=== PATIENT | female | born 1975 | race Caucasian/White ===

== ENCOUNTER → 2016-12-01 | Outpatient (CLI) | payer OTHER ==
[~2016-12-01] MED LIST: ESOM20CA PO; FERR325C PO; LISI-167 PO
== END | disposition home or self-care (01) ==
LOC: CFH 08:08
PROVIDERS: ATTEND Family Medicine
DX: K43.9 Ventral hernia without obstruction or gangrene (principal)
CPT/HCPCS: 76705

== ENCOUNTER 2017-01-05 09:51 | Day surgery (SDC) | payer OTHER ==
[2017-01-03 08:10] VITALS: BP 131/74
[2017-01-03 08:49] LABS: ASPARTATE AMINO TRANSFERASE 10 U/L (15-37); BLOOD UREA NITROGEN 13 mg/dL (7-18)
[~2017-01-05] VITALS: Ht 170.2 cm; Wt 111.4 kg
[~2017-01-05 09:51] MED LIST changes: +ATOR10TA9 PO; +BREO INH; +BUPIVACAINE/PF 0.5% ONE; +EPINEPHRINE 1 MG/ML, 1ML ONE; +LOSA50TA6 PO; +MULT-516 PO; +PANT40TA5 PO
[2017-01-05] MEDS ORDERED: LACTATED RINGERS 1,000 ML IV SCH ×2 (10:19→13:51)
[2017-01-05] MEDS ORDERED: LIDOCAINE 1%, 2ML SQ PRN (10:30)
[2017-01-05 11:07] LABS: HCG UR LOT HCG7030192
[2017-01-05 11:26] LABS: HCG UR OBC PASS
[2017-01-05] MEDS ORDERED: MIDAZOLAM 1 MG/ML, 2ML ONE (12:06)
[2017-01-05] MEDS ORDERED: FENTANYL PF 100 MCG/2ML ONE ×3 (12:06→14:10)
[2017-01-05] MEDS ORDERED: ROCURONIUM 10 MG/ML,10ML ONE ×2 (12:07→12:23)
[2017-01-05] MEDS ORDERED: CEFAZOLIN 1,000 MG ONE ×2 (12:07→12:23)
[2017-01-05] MEDS ORDERED: KETOROLAC 30 MG/1 ML ONE (12:07)
[2017-01-05] MEDS ORDERED: ONDANSETRON 2MG/ML, 2ML ONE ×2 (12:07→12:23)
[2017-01-05] MEDS ORDERED: GLYCOPYRROLATE 0.2MG/1ML, 5ML ONE (12:23)
[2017-01-05] MEDS ORDERED: PROPOFOL 10 MG/ML, 20ML ONE (12:23)
[2017-01-05] MEDS ORDERED: NEOSTIGMINE 1 MG/ML, 10ML ONE (12:23)
[2017-01-05] MEDS ORDERED: DEXAMETHASONE 4 MG/ML, 1ML ONE (12:23)
[2017-01-05] MEDS ORDERED: SUCCINYLCHOLINE 20 MG/ML, 10ML ONE (12:23)
[2017-01-05] MEDS ORDERED: OXYcodone 5 MG/5 ML ORAL.SOL UDC PO PRN (13:30)
[2017-01-05] MEDS ORDERED: MEPERIDINE/PF 25MG/0.5ML IVPush PRN (13:30)
[2017-01-05] MEDS ORDERED: hydrALAzine 20 MG/ML, 1ML IV PRN (13:30)
[2017-01-05] MEDS ORDERED: MIDAZOLAM 1 MG/ML, 2ML IV PRN (13:30)
[2017-01-05] MEDS ORDERED: HYDROcodone/APAP 7.5-325MG/15ML UDC PO PRN (13:30)
[2017-01-05] MEDS ORDERED: DIAZEPAM 5 MG/ML, 2ML IVPush PRN (13:30)
[2017-01-05] MEDS ORDERED: ONDANSETRON 2MG/ML, 2ML IVPush PRN ×2 (13:30→14:00)
[2017-01-05] MEDS ORDERED: LABETALOL 5MG/ML, 20ML IV PRN (13:30)
[2017-01-05] MEDS ORDERED: ACETAMINOPHEN 325 MG TABLET PO PRN (13:30)
[2017-01-05] MEDS ORDERED: ALBUTEROL SULFATE 2.5 MG/3 ML NPPB PRN (13:30)
[2017-01-05] MEDS ORDERED: EPHEDRINE 50 MG/ML, 1ML IVPush PRN (13:30)
[2017-01-05] MEDS ORDERED: METOPROLOL 1 MG/ML, 5ML IV PRN (13:30)
[2017-01-05] MEDS ORDERED: PROMETHAZINE 25 MG/ML, 1ML IV PRN (13:30)
[2017-01-05] MEDS ORDERED: HYDROmorphone 1 MG/ML, 1ML ONE ×2 (13:31→14:11)
[2017-01-05] MEDS: FENTANYL PF 100 MCG/2ML IV PRN ×2 (13:52→14:30)
[2017-01-05] MEDS ORDERED: KETOROLAC 30 MG/1 ML IVPush PRN (14:00)
[2017-01-05] MEDS ORDERED: morphine SULFATE 10 MG/ML, 1ML IVPush PRN (14:00)
[2017-01-05] MEDS ORDERED: HYDROcodone/APAP 5/325 TABLET PO PRN (14:00)
[2017-01-05] MEDS ORDERED: HYDROcodone/APAP 7.5-325MG/15ML UDC ONE (14:10)
[2017-01-05] MEDS: HYDROmorphone 1 MG/ML, 1ML IV PRN ×2 (14:19→14:30)
== END 2017-01-05 17:30 | disposition home or self-care (01) ==
LOC: OUT 09:51
PROVIDERS: ATTEND Thoracic Surgery (Cardiothoracic Vascular Surgery)
DX: K43.0 Incisional hernia with obstruction, without gangrene (principal); K21.9 Gastro-esophageal reflux disease without esophagitis; K44.9 Diaphragmatic hernia without obstruction or gangrene; E78.00 Pure hypercholesterolemia, unspecified; I10 Essential (primary) hypertension; Z98.890 Other specified postprocedural states
CPT/HCPCS: 36415; 49653; 80053; 81025; C1781; J0171; J0330; J0690; J1100; J1170; J1885; J2250; J2405; J2704; J2710; J3010; J3490; J7120; S2900

== ENCOUNTER → 2017-08-15 | Outpatient (CLI) | payer OTHER ==
[~2017-08-15] MED LIST changes: -BUPIVACAINE/PF 0.5% ONE; -EPINEPHRINE 1 MG/ML, 1ML ONE
== END | disposition home or self-care (01) ==
LOC: CFH 07:21
PROVIDERS: ATTEND Family Medicine
DX: Z12.31 Encounter for screening mammogram for malignant neoplasm of breast (principal)
CPT/HCPCS: 77067

== ENCOUNTER 2018-12-11 08:09 | Day surgery (SDC) | payer OTHER ==
[~2018-12-11] VITALS: Ht 170.2 cm; Wt 88.4 kg
[~2018-12-11 08:09] MED LIST changes: +BUPIVACAINE/PF 0.25% ONE; +EPINEPHRINE 1 MG/ML, 1ML ONE; +LOSA50TA14 PO; -LOSA50TA6 PO; +NEOMY/POLYMYXIN B GU IRR. 1 ML ONE
[2018-12-11] MEDS ORDERED: LACTATED RINGERS 1,000 ML IV SCH (09:02)
[2018-12-11 09:08] LABS: HCG UR SG 1.028 (1.003-1.030)
[2018-12-11 09:25] VITALS: BP 129/86
[2018-12-11] MEDS ORDERED: GABAPENTIN 300 MG CAPSULE PO ONE (09:30)
[2018-12-11] MEDS ORDERED: DIAZEPAM 5 MG TABLET PO ONE (09:30)
[2018-12-11] MEDS ORDERED: ACETAMINOPHEN 500 MG TABLET PO ONE (09:30)
[2018-12-11] MEDS ORDERED: ONDANSETRON ODT 8 MG PO ONE (09:30)
[2018-12-11] MEDS ORDERED: IRON PO (09:35)
[2018-12-11] MEDS ORDERED: FENTANYL PF 250 MCG/5ML ONE (11:12)
[2018-12-11] MEDS ORDERED: MIDAZOLAM 1 MG/ML, 2ML ONE (11:12)
[2018-12-11] MEDS ORDERED: PROPOFOL 50 ML ONE (11:12)
[2018-12-11] MEDS ORDERED: CEFAZOLIN 1,000 MG ONE (12:15)
[2018-12-11] MEDS ORDERED: ONDANSETRON 2MG/ML, 2ML ONE (12:55)
[2018-12-11] MEDS ORDERED: ROCURONIUM 10MG/ML,5ML ONE (12:55)
[2018-12-11] MEDS ORDERED: SUCCINYLCHOLINE 20 MG/ML, 10ML ONE (12:55)
[2018-12-11] MEDS ORDERED: DEXAMETHASONE 4 MG/ML, 1ML ONE (12:56)
[2018-12-11] MEDS ORDERED: MEPERIDINE/PF 25MG/ML,1ML IVPush PRN (13:00)
[2018-12-11] MEDS ORDERED: ONDANSETRON 2MG/ML, 2ML IV PRN (13:00)
[2018-12-11] MEDS ORDERED: ONDANSETRON ODT 8 MG PO PRN (13:00)
[2018-12-11] MEDS ORDERED: PROMETHAZINE 25 MG/ML, 1ML IV PRN (13:00)
[2018-12-11] MEDS ORDERED: MORPHINE SULFATE 4 MG/ML, 1ML IVPush PRN (13:00)
[2018-12-11] MEDS ORDERED: MIDAZOLAM 1 MG/ML, 2ML IV PRN (13:00)
[2018-12-11] MEDS ORDERED: DIAZEPAM 5 MG/ML, 2ML IVPush PRN (13:00)
[2018-12-11] MEDS ORDERED: ALBUTEROL SULFATE 2.5 MG/3 ML NPPB PRN (13:00)
[2018-12-11] MEDS ORDERED: EPHEDRINE 50 MG/ML, 1ML IVPush PRN (13:00)
[2018-12-11] MEDS ORDERED: hydrALAzine 20 MG/ML, 1ML IV PRN (13:00)
[2018-12-11] MEDS ORDERED: METOPROLOL 1 MG/ML, 5ML IV PRN (13:00)
[2018-12-11] MEDS ORDERED: FENTANYL PF 100 MCG/2ML IV PRN (13:00)
[2018-12-11] MEDS ORDERED: OXYcodone 5 MG/5 ML ORAL.SOL UDC PO PRN (13:00)
[2018-12-11] MEDS ORDERED: EPHEDRINE 50 MG/ML, 1ML IM PRN (13:00)
[2018-12-11] MEDS ORDERED: DIPHENHYDRAMINE 50 MG/ML, 1ML IVPush PRN (13:00)
[2018-12-11] MEDS ORDERED: OXYcodone 5 MG/5 ML ORAL.SOL UDC ONE (13:51)
[2018-12-11] MEDS ORDERED: MEPERIDINE/PF 25MG/ML,1ML ONE (13:51)
[2018-12-11] MEDS ORDERED: HYDROcodone/APAP 5/325 TABLET ONE (16:36)
[2018-12-11] MEDS ORDERED: HYDROcodone/APAP 5/325 TABLET PO ONE (17:00)
[2018-12-11] MEDS: HYDROmorphone 2 MG/ML, 1ML IVPush PRN ×2 (17:25→17:32)
== END 2018-12-11 18:20 | disposition home or self-care (01) ==
LOC: OUT 08:09
PROVIDERS: ATTEND Obstetrics & Gynecology Female Pelvic Medicine and Reconstructive Surgery
DX: Z30.2 Encounter for sterilization (principal); N93.9 Abnormal uterine and vaginal bleeding, unspecified; N94.6 Dysmenorrhea, unspecified; N94.10 Unspecified dyspareunia; N81.89 Other female genital prolapse; N80.3 Endometriosis of pelvic peritoneum; N39.46 Mixed incontinence; N32.81 Overactive bladder; J45.909 Unspecified asthma, uncomplicated; I10 Essential (primary) hypertension; E78.5 Hyperlipidemia, unspecified; Z98.890 Other specified postprocedural states; Z88.1 Allergy status to other antibiotic agents; Z88.8 Allergy status to other drugs, medicaments and biological substances
CPT/HCPCS: 57265; 57282; 57288; 58563; 58662; 58670; 81025; C1771; J0171; J0330; J0690; J1100; J2175; J2250; J2405; J2704; J3010; J3490; J7120; Q0162; J1170